=== PATIENT | male | born 1995 | race Hispanic/Latino ===

== ENCOUNTER 2022-05-26 17:36 | Emergency (ER) | payer SELFPAY ==
[2022-05-26] MEDS ORDERED: ONDANSETRON 4 MG (ODT) TAB ONE (18:12)
[2022-05-26 19:28] LABS: SARS-COV-2 RT PCR NEGATIVE (NEGATIVE)
[2022-05-26] MEDS ORDERED: ACETAMINOPHEN 325 MG TABLET ONE (19:43)
--- NOTE | 2022-05-26 19:43 | ER ---
Nurse's Notes [facility] Name: Jorge Muñoz Age: 26 yrs Sex: Male : 1995 Arrival Date: 05/26/2022 Time: 17:38 Bed DIS9 Private MD: Diagnosis: Influenza due to other identified influenza virus with gastrointestinal manifestations Presentation: 05/26 17:41 Chief complaint: Body aches, headache, cough, N/V, and chills x 2 days. Not tolerating hb fluids. Coronavirus screen: At this time, the client does not indicate any symptoms associated with coronavirus-19. Ebola Screen: No symptoms or risks identified at this time. Initial Sepsis Screen: Does the patient meet any 2 criteria? No. Patient's initial sepsis screen is negative. Does the patient have a suspected source of infection? No. Patient's initial sepsis screen is negative. Risk Assessment: Do you want to hurt yourself or someone else? Patient reports no desire to harm self or others. Onset of symptoms was May 25, 2022. 17:41 Method Of Arrival: Ambulatory hb 17:41 Acuity: FOZIA 4 hb Historical: - Allergies: 17:43 No Known Allergies; hb - Immunization history:: Adult Immunizations up to date. - Social history:: Smoking status: Patient denies any tobacco usage or history of. Screenin:00 Abuse screen: Denies threats or abuse. Denies injuries from another. Nutritional eh3 screening: No deficits noted. Tuberculosis screening: No symptoms or risk factors identified. Fall Risk None identified. Assessment: 18:00 General: Appears in no apparent distress. uncomfortable, Behavior is calm, cooperative, eh3 appropriate for age. Pain: Complains of pain in head. Neuro: Level of Consciousness is awake, alert, obeys commands, Oriented to person, place, time, situation. Cardiovascular: Capillary refill < 3 seconds Patient's skin is warm and dry. Respiratory: Airway is patent Respiratory effort is even, unlabored, Respiratory pattern is regular, symmetrical. GI: Abdomen is round non-distended. : No signs and/or symptoms were reported regarding the genitourinary system. EENT: No signs and/or symptoms were reported regarding the EENT system. Derm: No signs and/or symptoms reported regarding the dermatologic system. Musculoskeletal: No signs and/or symptoms reported regarding the musculoskeletal system. 19:00 Reassessment: Patient and/or family updated on plan of care and expected duration. Pain eh3 level reassessed. Patient is alert, oriented x 3, equal unlabored respirations, skin warm/dry/pink. Patient states symptoms have improved. Vital Signs: 17:41 BP 139 / 81; Pulse 117; Resp 18; Temp 98.8; Pulse Ox 99% on R/A; Pain 8/10; hb 19:00 BP 132 / 73; Pulse 126; Resp 18; Pulse Ox 99% on R/A; eh3 19:47 Temp 100.7(O); eh3 ED Course: 17:38 Patient arrived in ED. 4 17:40 Castillo Davalos PA is PHCP. cp 17:40 Bairon Guzman MD is Attending Physician. cp 17:40 PHCP role handed off by Castillo Davalos PA [facility] 17:40 Marva Queen FNP is PHCP. [facility] 17:43 Triage completed. hb 18:00 Patient has correct armband on for positive identification. Call light in reach. Seated eh3 in chair. Pulse ox on. NIBP on. Door closed. Noise minimized. 18:04 Tila Lozoya RN is Primary Nurse. eh3 18:33 COVID-19/FLU A+B Sent. iw 19:35 Diet: Patient given water. Tolerated well. eh3 20:07 No provider procedures requiring assistance completed. Patient did not have IV access hb during this emergency room visit. Administered Medications: 18:35 Drug: Ondansetron 4 mg Route: PO; eh3 19:04 Follow up: Response: Nausea is decreased eh3 19:46 Drug: Tylenol 650 mg Route: PO; eh3 Medication: 20:07 VIS not applicable for this client. hb Outcome: 19:42 Discharge ordered by . [facility] 20:07 Discharged to home ambulatory. hb 20:07 Condition: stable 20:07 Discharge instructions given to patient, Instructed on discharge instructions, follow up and referral plans. medication usage, Demonstrated understanding of instructions, follow-up care, medications, Prescriptions given X 2. 20:07 Patient left the ED. hb Signatures: Bhavana Cueva RN RN Castillo Davalos PA PA cp Baxter, Heather, RN RN hb Garcia, Rubi rg4 Tila Lozoya, RN RN eh3 Marva Queen, JACKET CHANGER JACKET CHANGER jh7
--- NOTE | 2022-05-26 19:43 | EDPHYS ---
Physician Documentation [facility] Name: Jorge Muñoz Age: 26 yrs Sex: Male : 1995 Arrival Date: 05/26/2022 Time: 17:38 Bed DIS9 Private MD: ED Physician Bairon Guzman HPI: 05/26 17:45 This 26 yrs old Male presents to ER via Ambulatory with complaints of jh7 Vomiting, Headache, Body Aches. 17:45 The patient presents to the emergency department with nausea, vomiting. Onset: The jh7 symptoms/episode began/occurred 2 day(s) ago. Associated signs and symptoms: Pertinent positives: fever, Pertinent negatives: abdominal pain, dysuria. Historical: - Allergies: 17:43 No Known Allergies; hb - Immunization history:: Adult Immunizations up to date. - Social history:: Smoking status: Patient denies any tobacco usage or history of. ROS: 17:45 Eyes: Negative for injury, pain, redness, and discharge, ENT: Negative for injury, jh7 pain, and discharge, Neck: Negative for injury, pain, and swelling, Cardiovascular: Negative for chest pain, palpitations, and edema, Respiratory: Negative for shortness of breath, cough, wheezing, and pleuritic chest pain, Back: Negative for injury and pain, MS/Extremity: Negative for injury and deformity, Skin: Negative for injury, rash, and discoloration, Neuro: Negative for headache, weakness, numbness, tingling, and seizure. 17:45 Constitutional: Positive for body aches, chills, fatigue, fever. 17:45 Abdomen/GI: Positive for nausea and vomiting, Negative for diarrhea, constipation. 17:45 All other systems are negative. Exam: 17:45 Constitutional: This is a well developed, well nourished patient who is awake, alert, jh7 and in no acute distress. Head/Face: Normocephalic, atraumatic. ENT: Nares patent. No nasal discharge, no septal abnormalities noted. Tympanic membranes are normal and external auditory canals are clear. Oropharynx with no redness, swelling, or masses, exudates, or evidence of obstruction, uvula midline. Mucous membranes moist. Neck: Trachea midline, no thyromegaly or masses palpated, and no cervical lymphadenopathy. Supple, full range of motion without nuchal rigidity, or vertebral point tenderness. No Meningismus. Cardiovascular: Regular rate and rhythm with a normal S1 and S2. No gallops, murmurs, or rubs. Normal PMI, no JVD. No pulse deficits. Respiratory: Lungs have equal breath sounds bilaterally, clear to auscultation and percussion. No rales, rhonchi or wheezes noted. No increased work of breathing, no retractions or nasal flaring. Abdomen/GI: Soft, non-tender, with normal bowel sounds. No distension or tympany. No guarding or rebound. No evidence of tenderness throughout. Back: No spinal tenderness. No costovertebral tenderness. Full range of motion. Skin: Warm, dry with normal turgor. Normal color with no rashes, no lesions, and no evidence of cellulitis. MS/ Extremity: Pulses equal, no cyanosis. Neurovascular intact. Full, normal range of motion. Neuro: Awake and alert, GCS 15, oriented to person, place, time, and situation. Motor strength 5/5 in all extremities. Sensory grossly intact. Normal gait. Vital Signs: 17:41 BP 139 / 81; Pulse 117; Resp 18; Temp 98.8; Pulse Ox 99% on R/A; Pain 8/10; hb 19:00 BP 132 / 73; Pulse 126; Resp 18; Pulse Ox 99% on R/A; eh3 19:47 Temp 100.7(O); eh3 MDM: 17:40 Patient medically screened. [facility] 19:48 Differential diagnosis: viral gastroenteritis, gastroenteritis, Influenza, COVID. Data [facility] reviewed: vital signs, nurses notes. Data interpreted: Pulse oximetry: is 99 %. Interpretation: normal. Counseling: I had a detailed discussion with the patient and/or guardian regarding: the historical points, exam findings, and any diagnostic results supporting the discharge/admit diagnosis, to return to the emergency department if symptoms worsen or persist or if there are any questions or concerns that arise at home. 05/26 17:45 Order name: COVID-19/FLU A+B; Complete Time: 19:39 [facility] 05/26 18:51 Order name: PO challenge; Complete Time: 19:36 [facility] Administered Medications: 18:35 Drug: Ondansetron 4 mg Route: PO; 3 19:04 Follow up: Response: Nausea is decreased eh3 19:46 Drug: Tylenol 650 mg Route: PO; eh3 Disposition Summary: 05/26/22 19:42 Discharge Ordered Location: Home [facility] Problem: new [facility] Symptoms: have improved [facility] Condition: Stable [facility] Diagnosis - Influenza due to other identified influenza virus with gastrointestinal [facility] manifestations Followup: [facility] - With: Private Physician - When: 2 - 3 days - Reason: Recheck today's complaints Discharge Instructions: - Discharge Summary Sheet [facility] - Influenza, Adult [facility] Forms: - Medication Reconciliation Form [facility] - Work release form - Thank You Letter [facility] Prescriptions: - ondansetron 4 mg Oral tablet,disintegrating - place 1 tablet by TRANSLINGUAL route 4 times per day As needed; 20 tablet; [facility] Refills: 0, Product Selection Permitted - Tamiflu 75 mg Oral Capsule - take 1 tablet by ORAL route every 12 hours for 5 days; 10 tablet; Refills: 0, [facility] Product Selection Permitted Addendum: 05/28/2022 17:38 Co-signature as Attending Physician, Bairon Guzman MD I agree with the assessment and r t plan of care. Signatures: Dispatcher [employer] EDAngelina Moya RN GASPER Tila Lozoya RN RN 3 Marva Queen, ENGRAVER RUBBER [place] [id number] Bairon Guzman MD MD rt
[2022-05-26 20:11] VITALS: O2SAT 99
[2022-05-26 20:12] VITALS: BP 132/73
[2022-05-26 20:13] VITALS: TEMP 100.7
== END 2022-05-26 20:07 | disposition home or self-care (01) ==
LOC: ER 17:36
DX: J10.2 Influenza due to other identified influenza virus with gastrointestinal manifestations (principal); Z20.822 Contact with and (suspected) exposure to COVID-19
CPT/HCPCS: 0240U; 99284; Q0162